=== PATIENT | female | born 1935 | race Hispanic/Latino ===

== ENCOUNTER 2016-10-04 18:40 | Emergency (ER) | payer MEDICAID, OTHER ==
[2016-10-04 19:03] VITALS: BP 151/114; PULSE 86; RESP 18; TEMP 98.4; O2SAT 99
[2016-10-04] MEDS ORDERED: Sodium Chloride 0.9% 1,000 ML IV STA (19:29)
[2016-10-04 20:01] LABS: BASO % 0.3 % (0.0-2.0); EOS # 0.1 K/uL (0.0-0.7); EOS % 1.1 % (0.0-4.0); HEMATOCRIT 34.9 % (34.0-47.0); LYMPH # 1.1 K/uL (1.0-4.3); LYMPH % 13.9 % (20.0-40.0); MEAN CELL VOLUME 88.1 fl (81.0-99.0); MEAN CORPUSCULAR HEMOGLOBIN 29.6 pg (27.0-31.0); MEAN CORPUSCULAR HGB CONC 33.6 g/dL (33.0-37.0); MEAN PLATELET VOLUME 6.9 fl (7.2-11.7); MONO # 0.8 K/uL (0.0-0.8); MONO % 9.3 % (0.0-10.0); NEUT # 6.2 K/uL (1.8-7.0); NEUT % 75.4 % (50.0-75.0); RED CELL DISTRIBUTION WIDTH 14.7 % (11.5-14.5); WHITE BLOOD COUNT 8.2 K/uL (4.8-10.8)
[2016-10-04 20:07] LABS: ALB/GLOB RATIO 1.7 (1.0-2.1); ALKALINE PHOSPHATASE 42 U/L (38-126); ALT/SGPT 43 U/L (9-52); AST/SGOT 35 U/L (14-36); BILIRUBIN,TOTAL 0.4 mg/dl (0.2-1.3); BLOOD UREA NITROGEN 24 mg/dl (7-17); CALCIUM 10.7 mg/dL (8.4-10.2); CARBON DIOXIDE 33 mmol/L (22-30); CHLORIDE 99 mmol/L (98-107); GFR AFRICAN-AMERICAN > 60; GLUCOSE,RANDOM 108 mg/dL (65-105); SODIUM 139 mmol/l (132-148); TOTAL PROTEIN 7.1 G/DL (6.3-8.2)
[2016-10-04 20:11] LABS: POTASSIUM 5.6 MMOL/L (3.6-5.0)
--- NOTE | 2016-10-04 20:22 | ED PDOC ---
HPI: Abdomen Time Seen by Provider: 10/04/16 19:17 Chief Complaint (Nursing): GI Problem Chief Complaint (Provider): GI Problem History Per: Patient History/Exam Limitations: no limitations Onset/Duration Of Symptoms: Hrs Current Symptoms Are (Timing): Better Additional Complaint(s): 80 y/o female with a past medical history of hypertension, mild asthma, osteoarthritis and osteopenia, currently visiting from [place] who presents to the emergency department with a complaint of an acute nausea and vomiting after eating at a [employer] prior to arrival. Associated with abdominal pain after ingesting 10 mL of potassium bicarbonate. States the reason why she took the potassium was because she was sweaty, developed leg cramping, and thought she was potassium depleted. Reports the vomiting (non bloody) was bilious at first and then became clear. No longer has abdominal pain or nausea. Patient called poison control and was advised to visit the emergency department for an evaluation. Past Medical History Vital Signs: Last Vital Signs Temp 98.4 F 10/04/16 19:00 Pulse 86 10/04/16 19:00 Resp 18 10/04/16 19:00 BP 151/114 H 10/04/16 19:00 Pulse Ox 99 10/05/16 03:05 - Medical History PMH: Diverticulitis, HTN, Osteoporosis - Surgical History Other surgeries: Bilateral shoulder and right knee replacement - Family History Family History: States: No Known Family Hx - Home Medications Home Medications: Ambulatory Orders Medication Instructions Recorded Ciprofloxacin [Cipro] 500 mg PO Q12 #14 tab 10/04/16 Famotidine [Pepcid] 20 mg PO Q12 #14 tab 10/04/16 Ondansetron ODT [Zofran ODT] 4 mg PO Q6 PRN #16 odt 10/04/16 - Allergies Allergies/Adverse Reactions: Allergies Allergy/AdvReac Type Severity Reaction Status Date / Time celecoxib [From Celebrex] Allergy Mild ANAPHYLAXIS Verified 10/04/16 22:49 cephalexin [From Keflex] Allergy Mild ANAPHYLAXIS Verified 10/04/16 22:44 Penicillins Allergy Mild ANAPHYLAXIS Verified 10/04/16 22:45 sapropterin Allergy Mild ANAPHYLAXIS Verified 10/04/16 22:45 tetanus and diphtheria Allergy Mild ANAPHYLAXIS Verified 10/04/16 22:49 toxoids tramadol Allergy Mild ANAPHYLAXIS Verified 10/04/16 22:48 Review of Systems ROS Statement: Except As Marked, All Systems Reviewed And Found Negative Gastrointestinal: Positive for: Nausea (had resolved since), Vomiting (had resolved since), Abdominal Pain (had resolved since). Negative for: Hematemesis Physical Exam - Reviewed Nursing Documentation Reviewed: Yes Vital Signs Reviewed: Yes - Physical Exam Appears: Positive for: Non-toxic, No Acute Distress Head Exam: Positive for: ATRAUMATIC, NORMAL INSPECTION, NORMOCEPHALIC Skin: Positive for: Normal Color, Warm, Dry ENT: Positive for: Normal ENT Inspection, Other (Dry mucous membranes). Negative for: Pharyngeal Erythema Neck: Positive for: Normal, Supple Cardiovascular/Chest: Positive for: Regular Rate, Rhythm. Negative for: Murmur Respiratory: Positive for: Normal Breath Sounds. Negative for: Accessory Muscle Use, Respiratory Distress Gastrointestinal/Abdominal: Positive for: Normal Exam, Soft. Negative for: Tenderness Back: Positive for: Normal Inspection. Negative for: L CVA Tenderness, R CVA Tenderness Extremity: Positive for: Normal ROM. Negative for: Pedal Edema Neurologic/Psych: Positive for: Alert, Oriented - Laboratory Results Result Diagrams: 10/04/16 19:40 10/04/16 19:40 - ECG O2 Sat by Pulse Oximetry: 99 (RA) Pulse Ox Interpretation: Normal - Critical Care Total Time (In Min): 30 Medical Decision Making Medical Decision Making: Time: 1923 Initial impression: 80 year old female in known setting of ingesting potassium Initial plan: --Electrocardiogram STAT --COMP Metabolic Panel --Lipase STAT --ED Urine Dipstick (POC) --EKG-ED (EDNURTX) --CBC w/ differential --Sodium Chloride 1,000 ml IV 125 mls/hr --Ondansetron 4 mg IV --Heplock Insertion --Urinalysis STAT --Call Poison Control As Ordered --Poison Control Consult Routine for potassium ingestion --Reevaluation Time: 21:50 --Pepcid 20 mg IV --Cipro 500 mg PO --Spoke to Emanuel from Poison Control once called again around and explained to him that the label on the bottle that patient ingested has nutritional information including serving size and calories. When i explained that to them; Emanuel said that the poison control nurse who was there previously misunderstood that it was a cleaning agent but now since it is aware that ingested liquid was food substance, and she can be discharge. --No clinical abnormalities except mild elevation on potassium levels. --Blood work is normal. --urine showed a urinary tract infection. --EKG: normal sinus rhythm at 76 bpm at 20:[address] wave abnormality. Time: 22:36 Upon provider reevaluation patient is feeling better, is medically stable, and requires no further treatment in the ED at this time. Patient will be discharged home with Rx for Cipro 500 mg, Pepcid 20 mg, and Zofran 4 mg . Counseling was provided and all questions were answered regarding diagnosis and need for follow up with primary care physician. There is agreement to discharge plan. Return if symptoms persist or worsen. Clinical Impression: gastritis, ingestion of nontoxic substance and urinary tract infection Scribe Attestation: Documented by Sahra Celis, acting as a scribe for Price High MD. Provider Scribe Attestation: All medical record entries made by the Scribe were at my direction and personally dictated by me. I have reviewed the chart and agree that the record accurately reflects my personal performance of the history, physical exam, medical decision making, and the department course for this patient. I have also personally directed, reviewed, and agree with the discharge instructions and disposition. Disposition - Clinical Impression Clinical Impression: Gastritis, Ingestion of nontoxic substance, UTI (urinary tract infection) - Patient ED Disposition Is Patient to be Admitted: No Counseled Patient/Family Regarding: Diagnosis, Need For Followup, Rx Given - Disposition Disposition: Routine/Home Disposition Time: 22:36 Condition: STABLE Prescriptions: Ciprofloxacin [Cipro] 500 mg PO Q12 #14 tab Famotidine [Pepcid] 20 mg PO Q12 #14 tab Ondansetron ODT [Zofran ODT] 4 mg PO Q6 PRN #16 odt PRN Reason: Nausea/Vomiting Instructions: Gastritis (ED), Urinary Tract Infection in Women (ED)
[2016-10-04 21:47] LABS: RBC URINE 3 /hpf (0-3); URINE BACTERIA RARE (<OCC); URINE BILIRUBIN NEGATIVE (NEGATIVE); URINE BLOOD NEGATIVE (NEGATIVE); URINE COLOR YELLOW (YELLOW); URINE GLUCOSE (UA) NEG (Normal); URINE KETONE NEGATIVE (NEGATIVE); URINE LEUKOCYTE ESTERASE MOD Leu/uL (Negative); URINE PROTEIN 30 mg/dL (NEGATIVE); URINE UROBILINOGEN 0.2-1.0 mg/dL (0.2-1.0); WBC URINE 63 /hpf (0-5)
--- NOTE | 2016-10-05 08:04 | CARD ---
APPROVED REPORT EKG Measurement Heart [id number] <Conclusion> Normal sinus rhythm Normal ECG
== END 2016-10-04 22:59 | disposition home or self-care (01) ==
LOC: H.ER 18:40
DX: K29.70 Gastritis, unspecified, without bleeding (principal); N39.0 Urinary tract infection, site not specified; I10 Essential (primary) hypertension; M81.0 Age-related osteoporosis without current pathological fracture; Z96.651 Presence of right artificial knee joint; Z88.0 Allergy status to penicillin
CPT/HCPCS: 80053; 81003; 83690; 85025; 93005; 96374; 96375; 99284; J2405; J7040